=== PATIENT | male | born 1980 | race Hispanic/Latino ===

== ENCOUNTER 2021-10-23 14:00 | Emergency (ER) | payer OTHER ==
[~2021-10-23] VITALS: Ht 177.8 cm; Wt 115.7 kg
[2021-10-23] MEDS ORDERED: TETANUS/DIPHTHERIA TOX ADULT 0.5 ML SYR IM ONE (14:15)
[2021-10-23] MEDS ORDERED: LIDOCAINE HCL 1% LOCAL INJ 20 ML VIAL INJ ONE (15:15)
== END 2021-10-23 15:47 | disposition home or self-care (01) ==
LOC: ER 14:37
DX: S61.212A Laceration without foreign body of right middle finger without damage to nail, initial encounter (principal); W23.1XXA Caught, crushed, jammed, or pinched between stationary objects, initial encounter; Y92.89 Other specified places as the place of occurrence of the external cause; I10 Essential (primary) hypertension
CPT/HCPCS: 12001; 73140; 90471; 90714; 99283; J2001; S0630

== ENCOUNTER 2021-10-30 14:54 | Emergency (ER) | payer SELFPAY ==
[~2021-10-30] VITALS: Ht 177.8 cm; Wt 115.7 kg
== END 2021-10-30 16:30 | disposition home or self-care (01) ==
LOC: ER 16:21
DX: Z48.02 Encounter for removal of sutures (principal); I10 Essential (primary) hypertension; F17.210 Nicotine dependence, cigarettes, uncomplicated
CPT/HCPCS: 99282

== ENCOUNTER 2022-01-26 18:17 | Inpatient (IN) | payer SELFPAY ==
[~2022-01-26] VITALS: Ht 177.8 cm; Wt 113.4 kg
[~2022-01-26 18:17] MED LIST: FENTANYL CITRATE/PF 100MCG/2 ML INJ ONE; MIDAZOLAM HCL 2 MG/2 ML VIAL ONE
[2022-01-26] MEDS ORDERED: SODIUM CHLORIDE FLUSH 10 ML SYR IV PRN (19:00)
[2022-01-26] MEDS ORDERED: ASPIRIN 81 MG CHEW TAB PO ONE (19:00)
[2022-01-26 19:13] LABS: BASOPHILS % 0.4 % (0.0-1.0); EOSINOPHILS # (AUTO) 0.4 (0.0-0.4); EOSINOPHILS % 4.7 % (0.0-6.0); HEMATOCRIT 20.8 % (38.2-49.6); LYMPHOCYTES # (AUTO) 2.9 (1.0-3.2); LYMPHOCYTES % 34.3 % (18.0-39.1); MEAN CORPUSCULAR HEMOGLOBIN 21.7 pg (28-32); MEAN CORPUSCULAR HGB CONC 27.9 g/dL (31-35); MEAN CORPUSCULAR VOLUME 77.9 fL (81-99); MONOCYTES # (AUTO) 0.6 (0.2-0.8); MONOCYTES % 6.9 % (4.4-11.3); NEUTROPHILS # (AUTO) 4.5 (2.1-6.9); NEUTROPHILS % 52.8 % (38.7-80.0); PLATELET COUNT 348 x10e3/uL (140-360); RED BLOOD COUNT 2.67 x10e6/uL (4.3-5.7); RED CELL DISTRIBUTION WIDTH 17.8 % (11.7-14.4)
[2022-01-26 19:40] LABS: ALBUMIN 3.4 g/dL (3.5-5.0); ALBUMIN/GLOBULIN RATIO 0.9 (0.8-2.0); ANION GAP 12.2 mmol/L (8-16); CREATININE, SERUM 0.93 mg/dL (0.72-1.25); POTASSIUM 4.2 mmol/L (3.5-5.1)
[2022-01-26 19:48] LABS: HEMOGLOBIN 5.8 g/dL (14.0-18.0)
[2022-01-26] MEDS ORDERED: SODIUM CHLORIDE 0.9% 250ML 250 ML IV ONE ×2 (20:30→23:00)
[2022-01-26] MEDS ORDERED: ONDANSETRON HCL INJ 2MG/ML 2ML 2 MG/ML VIAL IV PRN (20:45)
[2022-01-26] MEDS ORDERED: IOPAMIDOL 370 MG/ML 100 ML INFUS..BTL INJ ONE (21:39)
[2022-01-26 23:56] LABS: IRON 22 ug/dL (65-175)
[2022-01-26 23:57] LABS: % IRON SATURATION 5 % (15-50); TOTAL IRON BINDING CAPACITY 470 ug/dL (261-478); TRANSFERRIN 336 mg/dL (174-364)
[2022-01-27] VITALS (7 sets, daily range): BP systolic 116–133; BP diastolic 72–88
[2022-01-27] MEDS ORDERED: PNEUMOCOCCAL VACCINE POLYVALENT 23 MCG/0.5 ML VIAL IM SCH (00:38)
[2022-01-27] MEDS ORDERED: POTASSIUM CHLORIDE 20 MEQ TAB CR PO PRN (02:15)
[2022-01-27] MEDS ORDERED: LIDOCAINE 4% PATCH TP PRN (02:15)
[2022-01-27] MEDS ORDERED: DEXTROSE 50% SYRINGE 50 ML IV PRN (02:15)
[2022-01-27] MEDS ORDERED: DIPHENHYDRAMINE HCL 25 MG CAP PO PRN (02:15)
[2022-01-27] MEDS ORDERED: ALBUTEROL/IPRATROPIUM 3 ML NEB NEB PRN (02:15)
[2022-01-27] MEDS ORDERED: DOCUSATE SODIUM 100 MG CAP PO PRN (02:15)
[2022-01-27] MEDS ORDERED: BENZONATATE 100 MG CAP PO PRN (02:15)
[2022-01-27] MEDS ORDERED: HYDRALAZINE HCL 20 MG/ML VIAL IV PRN (02:15)
[2022-01-27] MEDS ORDERED: ACETAMINOPHEN 325 MG TAB PO PRN (02:15)
[2022-01-27] MEDS ORDERED: ONDANSETRON HCL INJ 2MG/ML 2ML 2 MG/ML VIAL IV PRN (02:15)
[2022-01-27] MEDS: IRON SUCROSE 100 MG in SODIUM CHLORIDE 0.9% 100 ML IV SCH (09:10)
[2022-01-27 09:44] LABS: BASOPHILS % 0.3 % (0.0-1.0); EOSINOPHILS # (AUTO) 0.4 (0.0-0.4); EOSINOPHILS % 4.2 % (0.0-6.0); HEMATOCRIT 25.8 % (38.2-49.6); LYMPHOCYTES # (AUTO) 2.5 (1.0-3.2); LYMPHOCYTES % 27.3 % (18.0-39.1); MEAN CORPUSCULAR HEMOGLOBIN 23.5 pg (28-32); MEAN CORPUSCULAR VOLUME 75.9 fL (81-99); MONOCYTES # (AUTO) 0.6 (0.2-0.8); MONOCYTES % 6.8 % (4.4-11.3); NEUTROPHILS # (AUTO) 5.5 (2.1-6.9); NEUTROPHILS % 60.5 % (38.7-80.0); PLATELET COUNT 330 x10e3/uL (140-360); RED CELL DISTRIBUTION WIDTH 17.8 % (11.7-14.4)
[2022-01-27 09:59] LABS: ALBUMIN 3.5 g/dL (3.5-5.0); ALBUMIN/GLOBULIN RATIO 0.9 (0.8-2.0); ANION GAP 12.1 mmol/L (8-16); CALCIUM 8.3 mg/dL (8.4-10.2); CREATININE, SERUM 0.9 mg/dL (0.72-1.25); POTASSIUM 4.1 mmol/L (3.5-5.1)
[2022-01-27] MEDS ORDERED: SODIUM CHLORIDE 0.9% 250ML 250 ML ONE (10:06)
[2022-01-27] MEDS ORDERED: PROPOFOL IV EMULSION 10 MG/ML 20 ML VIAL ONE (14:47)
[2022-01-27] MEDS ORDERED: LIDOCAINE HCL 2% LOCAL INJ 5 ML SDV VIAL INJ ONE (14:47)
[2022-01-28] VITALS (7 sets, daily range): BP systolic 107–138; BP diastolic 62–87
[2022-01-28 04:52] LABS: BASOPHILS % 0.2 % (0.0-1.0); EOSINOPHILS # (AUTO) 0.3 (0.0-0.4); EOSINOPHILS % 3.8 % (0.0-6.0); HEMATOCRIT 24.8 % (38.2-49.6); HEMOGLOBIN 7.3 g/dL (14.0-18.0); LYMPHOCYTES % 23.4 % (18.0-39.1); MEAN CORPUSCULAR HEMOGLOBIN 23.2 pg (28-32); MEAN CORPUSCULAR HGB CONC 29.4 g/dL (31-35); MEAN CORPUSCULAR VOLUME 78.7 fL (81-99); MONOCYTES # (AUTO) 0.6 (0.2-0.8); MONOCYTES % 6.7 % (4.4-11.3); NEUTROPHILS # (AUTO) 5.5 (2.1-6.9); NEUTROPHILS % 65.3 % (38.7-80.0); PLATELET COUNT 342 x10e3/uL (140-360); RED BLOOD COUNT 3.15 x10e6/uL (4.3-5.7)
[2022-01-28 05:06] LABS: CALCIUM 7.9 mg/dL (8.4-10.2); CREATININE, SERUM 0.87 mg/dL (0.72-1.25)
[2022-01-28] MEDS: IRON SUCROSE 100 MG in SODIUM CHLORIDE 0.9% 100 ML IV SCH (10:21)
[2022-01-29] VITALS (7 sets, daily range): BP systolic 121–140; BP diastolic 75–85
[2022-01-29 05:42] LABS: BASOPHILS % 0.4 % (0.0-1.0); EOSINOPHILS # (AUTO) 0.4 (0.0-0.4); EOSINOPHILS % 5.5 % (0.0-6.0); HEMATOCRIT 26.4 % (38.2-49.6); HEMOGLOBIN 7.8 g/dL (14.0-18.0); LYMPHOCYTES # (AUTO) 2.1 (1.0-3.2); LYMPHOCYTES % 28.3 % (18.0-39.1); MEAN CORPUSCULAR HEMOGLOBIN 22.8 pg (28-32); MEAN CORPUSCULAR HGB CONC 29.5 g/dL (31-35); MEAN CORPUSCULAR VOLUME 77.2 fL (81-99); MONOCYTES # (AUTO) 0.5 (0.2-0.8); MONOCYTES % 6.8 % (4.4-11.3); NEUTROPHILS # (AUTO) 4.4 (2.1-6.9); NEUTROPHILS % 58.2 % (38.7-80.0); PLATELET COUNT 343 x10e3/uL (140-360); RED BLOOD COUNT 3.42 x10e6/uL (4.3-5.7); RED CELL DISTRIBUTION WIDTH 18.6 % (11.7-14.4)
[2022-01-29 05:57] LABS: ANION GAP 14.5 mmol/L (8-16); CALCIUM 8.2 mg/dL (8.4-10.2); CREATININE, SERUM 0.83 mg/dL (0.72-1.25); POTASSIUM 4.5 mmol/L (3.5-5.1)
[2022-01-29] MEDS: IRON SUCROSE 100 MG in SODIUM CHLORIDE 0.9% 100 ML IV SCH (08:43)
[2022-01-29] MEDS ORDERED: BISACODYL 5 MG TAB EC PO ONE ×3 (17:30→19:30)
[2022-01-29] MEDS ORDERED: CITRATE OF MAGNESIA 300ML BOTTLE PO ONE (22:00)
[2022-01-30] VITALS (7 sets, daily range): BP systolic 119–138; BP diastolic 47–87
[2022-01-30] MEDS ORDERED: BISACODYL 10 MG SUPP PR ONE ×2 (00:30)
[2022-01-30] MEDS ORDERED: CITRATE OF MAGNESIA 300ML BOTTLE PO ONE (05:00)
[2022-01-30 05:41] LABS: HEMATOCRIT 28.1 % (38.2-49.6); HEMOGLOBIN 8.2 g/dL (14.0-18.0)
[2022-01-30 06:02] LABS: ANION GAP 13.2 mmol/L (8-16); CALCIUM 8.4 mg/dL (8.4-10.2); CREATININE, SERUM 0.89 mg/dL (0.72-1.25); POTASSIUM 4.2 mmol/L (3.5-5.1)
[2022-01-30] MEDS: IRON SUCROSE 100 MG in SODIUM CHLORIDE 0.9% 100 ML IV SCH (08:51)
[2022-01-30] MEDS ORDERED: PROPOFOL IV EMULSION 10 MG/ML 20 ML VIAL ONE (12:34)
[2022-01-30] MEDS ORDERED: GLUCAGON FOR INJ 1 MG VIAL ONE (12:34)
[2022-01-30] MEDS ORDERED: LIDOCAINE HCL 2% LOCAL INJ 5 ML SDV VIAL INJ ONE (12:34)
[2022-01-30] MEDS ORDERED: FENTANYL CITRATE/PF 100MCG/2 ML INJ ONE (12:35)
[2022-01-31] VITALS: BP 119/67
[2022-01-31 04:00] VITALS: BP 104/64
[2022-01-31 08:21] VITALS: BP 104/64
[2022-01-31 08:54] LABS: HEMATOCRIT 29.9 % (38.2-49.6); HEMOGLOBIN 8.9 g/dL (14.0-18.0)
[2022-01-31 09:09] VITALS: BP 119/72
[2022-01-31 09:16] LABS: ANION GAP 13.3 mmol/L (8-16); CALCIUM 8.6 mg/dL (8.4-10.2); CREATININE, SERUM 0.88 mg/dL (0.72-1.25); POTASSIUM 4.3 mmol/L (3.5-5.1)
[2022-01-31] MEDS: IRON SUCROSE 100 MG in SODIUM CHLORIDE 0.9% 100 ML IV SCH (11:04)
[2022-01-31] MEDS ORDERED: PANTOPRAZOLE SO40 MG PO (12:55)
== END 2022-01-31 13:12 | disposition home or self-care (01) | DRG 368 ==
LOC: ER 18:22 → ERHOLD 20:50 → MED/SURG3 01-27 00:43 → OBSVTOIN 01-29 07:35
PROVIDERS: ADMIT Internal Medicine; ATTEND Internal Medicine
PROC: 30233N1 Transfusion of Nonautologous Red Blood Cells into Peripheral Vein, Percutaneous Approach (ICD-10-PCS; 2022-01-27)
PROC: 5A09357 Assistance with Respiratory Ventilation, Less than 24 Consecutive Hours, Continuous Positive Airway Pressure (ICD-10-PCS; 2022-01-27)
PROC: 0DJ08ZZ Inspection of Upper Intestinal Tract, Via Natural or Artificial Opening Endoscopic (ICD-10-PCS; principal; 2022-01-27 17:31)
PROC: 0DB78ZX Excision of Stomach, Pylorus, Via Natural or Artificial Opening Endoscopic, Diagnostic (ICD-10-PCS; 2022-01-30)
PROC: 0DBN8ZX Excision of Sigmoid Colon, Via Natural or Artificial Opening Endoscopic, Diagnostic (ICD-10-PCS; 2022-01-30)
PROC: 0DB68ZX Excision of Stomach, Via Natural or Artificial Opening Endoscopic, Diagnostic (ICD-10-PCS; 2022-01-30 17:37)
DX: K20.91 Esophagitis, unspecified with bleeding (principal); K29.71 Gastritis, unspecified, with bleeding; D62 Acute posthemorrhagic anemia; I10 Essential (primary) hypertension; G47.33 Obstructive sleep apnea (adult) (pediatric); E66.01 Morbid (severe) obesity due to excess calories; K44.9 Diaphragmatic hernia without obstruction or gangrene; L53.8 Other specified erythematous conditions; K57.30 Diverticulosis of large intestine without perforation or abscess without bleeding; K63.5 Polyp of colon; K64.8 Other hemorrhoids; R06.03 Acute respiratory distress; Z68.35 Body mass index [BMI] 35.0-35.9, adult; Z87.891 Personal history of nicotine dependence; Z72.89 Other problems related to lifestyle; Z90.49 Acquired absence of other specified parts of digestive tract; Z20.822 Contact with and (suspected) exposure to COVID-19; Z91.19 Patient's noncompliance with other medical treatment and regimen
CPT/HCPCS: 36415; 43239; 45378; 71045; 74177; 80048; 80053; 82270; 82607; 82746; 83540; 84466; 84484; 85014; 85018; 85025; 85045; 86850; 86900; 86920; 88305; 88312; 88342; 93005; 93306; 94660; 94760; 94799; 99284; G0378; J1610; J1756; J2001; J2250; J3010; J7050; P9016; Q9967